=== PATIENT | female | born 1995 ===

== ENCOUNTER 2021-05-21 18:52 | Inpatient (IN) ==
[2021-05-21] MEDS ORDERED: Ondansetron 4 MG/2 ML VIAL IVP PRN (23:06)
[2021-05-21] MEDS ORDERED: Azithromycin 500 MG in 0.9 % Sodium Chloride 250 ML IVPB PRN (23:06)
[2021-05-21] MEDS ORDERED: *HR* Nalbuphine 10 MG/ML AMPUL IV PRN (23:06)
[2021-05-21] MEDS ORDERED: Naloxone 0.4 MG/ML INJ IVP PRN (23:06)
[2021-05-21] MEDS ORDERED: Famotidine 20 MG/2 ML VIAL IVP PRN (23:06)
[2021-05-21] MEDS ORDERED: Metoclopramide 10 MG/2 ML VIAL IVP PRN (23:06)
[2021-05-21] MEDS ORDERED: Ringers Solution, Lactated 1,000 ML IVC SCH (23:15)
[2021-05-21 23:55] LABS: Basophils % 0.3 %; Eosinophils # 0.1 K/mcL (0.0-0.6); Eosinophils % 0.6 %; Hematocrit 37.6 % (35.3-44.9); Hemoglobin 13.6 g/dL (11.5-15.4); Immature Granulocytes % 0.3 % (0-4); Lymphocytes # 1.9 K/mcL (0.6-4.6); Lymphocytes % 14.6 %; Mean Corpuscular HGB Conc 36.2 g/dL (31.6-35.5); Mean Corpuscular Hemoglobin 33.1 pg (28.0-33.3); Mean Corpuscular Volume 91.5 fL (83.0-100.0); Mean Platelet Volume 10.7 fL (9.4-12.4); Monocytes # 0.8 K/mcL (0.0-1.3); Monocytes % 5.8 %; Neutrophils # 10.3 K/mcL (1.6-8.9); Platelet Count 208 K/mcL (140-400); Red Blood Count 4.11 M/mcL (3.82-4.97); Red Cell Distribution Width 12.8 % (11.5-14.5); Segmented Neutrophils % 78.4 %; White Blood Count 13.2 K/mcL (4.3-11.1)
[2021-05-22 00:29] LABS: Influenza A PCR Negative (Negative); Influenza B PCR Negative (Negative); Resp. Syncytial Virus PCR Negative (Negative)
[2021-05-22 00:30] LABS: SARS-CoV-2 by PCR (In House) Negative (Negative)
[2021-05-22 00:33] LABS: Amphetamine Screen,Urine Negative ng/mL (Cutoff=1000); Barbiturate Screen,Urine Negative ng/mL (Cutoff=200); Benzodiazepines Screen,Urine Negative ng/mL (Cutoff=200); Cannabinoid Screen,Urine Negative ng/mL (Cutoff = 50); Cocaine Screen,Urine Negative ng/mL (Cutoff= 300); Opiate Screen,Urine Negative ng/mL (Cutoff=300); Phencyclidine Screen,Urine Negative ng/mL (Cutoff=25)
[2021-05-22] MEDS ORDERED: EPHEDrine 50 MG/ML VIAL IVP PRN (01:31)
[2021-05-22] MEDS ORDERED: Epidural Premix (fent/bupiv) 110 ML EP ONE (01:38)
[2021-05-22] MEDS ORDERED: Oxytocin 20 units/ LR 1000 mL 20 UNIT/1,000 ML BAG IVC SCH ×2 (01:45→12:57)
[2021-05-22] MEDS ORDERED: Epidural Premix (fent/bupiv) 110 ML EP SCH (01:45)
[2021-05-22] MEDS ORDERED: Methylergonovine 0.2 MG/ML AMPUL IM ONE (11:05)
[2021-05-22] MEDS ORDERED: Ondansetron ODT 4 MG TAB.RAPDIS SL PRN (12:57)
[2021-05-22] MEDS ORDERED: Benzocaine/Menthol 56 GM AEROSOL SPRAY TP PRN (12:57)
[2021-05-22] MEDS ORDERED: Lanolin 7 G OINT...G. TP PRN (12:57)
[2021-05-22] MEDS: Ibuprofen 600 MG TABLET PO SCH ×2 (13:36→15:59)
[2021-05-22] MEDS: Acetaminophen 325 MG TABLET PO SCH ×2 (13:36→21:37)
[2021-05-23] MEDS: Acetaminophen 325 MG TABLET PO SCH ×2 (02:43→08:29)
[2021-05-23] MEDS: Ibuprofen 600 MG TABLET PO SCH (02:43)
[2021-05-23 06:50] VITALS: BP 107/59; PULSE 83; TEMP 97.6; O2SAT 96
[2021-05-23] MEDS ORDERED: Prenatal Vit/FA 1 EACH TABLET PO SCH (09:00)
== END 2021-05-23 14:00 | disposition home or self-care (01) | DRG 807 ==
LOC: 1NENULAB → OBSVTOIN 18:52 → 1NENUOBS 05-22 12:34
PROVIDERS: ADMIT Registered Nurse; ATTEND Registered Nurse